=== PATIENT | female | born 1970 | race Caucasian/White ===

== ENCOUNTER 2019-02-10 09:55 | Emergency (ER) | payer BC ==
--- NOTE | 2019-02-10 12:13 | UC ---
Knee Pain HPI - HPI Summary HPI Summary: 48 yo female injured left knee a couple of weeks ago [place] like a strain was able to do ADLs and even exercise but still had pain last pm rolled over in bed and felt knee pop now unable to bear wt unable to straighten leg - History of Current Complaint Chief Complaint: UCLowerExtremity Stated Complaint: LT KNEE PAIN Time Seen by Provider: 02/10/19 11:42 Hx Obtained From: Patient Hx Last Menstrual Period: 12/16/18 Onset/Duration: Sudden Onset, Worse Since - last pm Severity Initially: Mild Severity Currently: Moderate Pain Intensity: 8 Pain Scale Used: 0-10 Numeric Character: Sharp Aggravating Factor(s): Movement, Weight Bearing Alleviating Factor(s): Rest Associated Signs And Symptoms: Positive: Swelling Able to Bear Weight: No - Allergies/Home Medications Allergies/Adverse Reactions: Allergies Allergy/AdvReac Type Severity Reaction Status Date / Time No Known Allergies Allergy Verified 02/10/19 10:17 Home Medications: Home Medications Calcium Carbonate [Calcium] 1 tab PO DAILY 02/10/19 [History Confirmed 02/10/19] Cetirizine HCl [Zyrtec] 1 tab PO DAILY 02/10/19 [History Confirmed 02/10/19] Esomeprazole Magnesium [Nexium] 1 tab PO DAILY 02/10/19 [History Confirmed 02/10] Ibuprofen [Advil] 400 mg PO ONCE PRN 02/10/19 [History Confirmed 02/10/19] Multivitamin [Multivitamins] 1 tab PO DAILY 02/10/19 [History Confirmed 02/10/19 ] PMH/Surg Hx/FS Hx/Imm Hx Previously Healthy: Yes - Surgical History Surgical History: Yes Surgery Procedure, Year, and Place: torn ACL with meniscus surgery - Social History Alcohol Use: None Substance Use Type: None Smoking Status (MU): Never Smoked Tobacco Review of Systems All Other Systems Reviewed And Are Negative: Yes Constitutional: Positive: Negative Skin: Positive: Negative Eyes: Positive: Negative ENT: Positive: Negative Respiratory: Positive: Negative Cardiovascular: Positive: Negative Gastrointestinal: Positive: Negative Genitourinary: Positive: Negative Motor: Positive: Decreased ROM - left kniee Musculoskeletal: Positive: Arthralgia - left knee Neurological: Positive: Negative Psychological: Positive: Negative Physical Exam Vital Signs: Initial Vital Signs Temp 98.7 F 02/10/19 10:11 Pulse 80 02/10/19 10:11 Resp 18 02/10/19 10:11 BP 121/72 02/10/19 10:11 Pulse Ox 99 02/10/19 10:11 Diagnostics - Radiology No standard instances Radiology Interpretation Completed By: Radiologist Summary of Radiographic Findings: no fx or effusion Knee Pain Course/Dx - Differential Dx/Diagnosis Provider Diagnosis: Tear of meniscus of left knee Discharge - Sign-Out/Discharge Documenting (check all that apply): Patient Departure All imaging exams completed and their final reports reviewed: Yes - Discharge Plan Condition: Stable Disposition: HOME Patient Education Materials: Meniscus Tear (ED) Referrals: Nader Donahue MD [Medical Doctor] - As Soon As Possible Additional Instructions: I suspect a torn meniscus I suggest advil or aleve ice twice daily - Billing Disposition and Condition Condition: STABLE Disposition: Home
[2019-02-10 13:31] VITALS: BP 131/71
== END 2019-02-10 13:31 | disposition home or self-care (01) ==
LOC: UCEAST 09:55
DX: S83.207A Unspecified tear of unspecified meniscus, current injury, left knee, initial encounter (principal); X58.XXXA Exposure to other specified factors, initial encounter; Y92.9 Unspecified place or not applicable
CPT/HCPCS: 99212; G0463

== ENCOUNTER 2019-05-30 10:32 | Day surgery (SDC) | payer BC ==
[~2019-05-30 10:32] MED LIST: Buffered Lidocaine 1% SYRIN* 1 ML/SYRINGE INTRADERM ONE; Lactated Ringers 1000 ML Bag* 1,000 ML IV SCH
[2019-05-30] MEDS ORDERED: Lidocaine 1% INJ* 10 MG/ML 30 ML SDV ONE (11:41)
[2019-05-30] MEDS ORDERED: Acetaminophen TAB* 325 MG PO PRN (12:07)
[2019-05-30] MEDS ORDERED: Naloxone* 0.4 MG/ML 1 ML VIAL IV PRN (12:07)
[2019-05-30] MEDS ORDERED: DiMENhydriNATE IV* 50 MG/ML VIAL IV PUSH PRN (12:07)
[2019-05-30] MEDS ORDERED: Ondansetron INJ* 2 MG/ML VIAL IV PRN (12:07)
[2019-05-30] MEDS ORDERED: fentaNYL* 50 MCG/ML 2 ML VIAL (100 MCG VIAL) IV PRN (12:07)
[2019-05-30] MEDS ORDERED: fentaNYL* 50 MCG/ML 2 ML VIAL (100 MCG VIAL) ONE (12:23)
[2019-05-30] MEDS ORDERED: Midazolam* 1 MG/ML 2 ML VIAL (2 MG) ONE (12:23)
[2019-05-30] MEDS ORDERED: Ketorolac INJ* 30 MG/ML 1 ML VIAL ONE (12:39)
[2019-05-30 15:38] VITALS: BP 121/79
--- NOTE | 2019-05-30 18:40 | OP ---
DATE OF OPERATION: 05/30/19 [facility] DATE OF : 68 SURGEON: Katerina Wagner MD REGIONAL COORDINATOR: MALATHI Miranda ANESTHESIA: Local MAC. PRE-OP DIAGNOSIS: Right carpal tunnel syndrome. POST-OP DIAGNOSIS: Right carpal tunnel syndrome. OPERATIVE PROCEDURE: Right carpal tunnel release. ESTIMATED BLOOD LOSS: Zero. TOURNIQUET TIME: Approximately 10 minutes. INDICATIONS FOR PROCEDURE: Lorena is a 49-year-old female, who has numbness and tingling in the median nerve distribution of her right hand. She presents for right carpal tunnel release. DESCRIPTION OF PROCEDURE: The patient was brought to the operating room, was given a sedation anesthetic and a local infiltration of 10 cc of 1% plain lidocaine in the palm of her right hand. The skin of her right hand and forearm was prepped and draped in the usual sterile fashion. The hand and forearm were exsanguinated and the tourniquet elevated to 250 mmHg. A longitudinal incision was made in the palm in line with the ring finger. We dissected through the subcutaneous tissue down to the transverse carpal ligament. The ligament was divided sharply with a knife and then more proximally with the scissors. The nerve was dissected free from the surrounding tissue and there was an area of moderate compression at the mid portion of the ligament. The wound was irrigated and the skin edges reapproximated with 4- 0 nylon suture. The wound was dressed with Xeroform, 4x4 , Webril, and an [place] wrap. The patient tolerated the procedure well and was brought to the recovery room in good condition. [id number]/[facility] #: [id number] KENNETH
== END 2019-05-30 13:40 | disposition home or self-care (01) ==
LOC: OREAST 10:32
PROVIDERS: ATTEND Orthopaedic Surgery
DX: G56.01 Carpal tunnel syndrome, right upper limb (principal); K21.9 Gastro-esophageal reflux disease without esophagitis
CPT/HCPCS: 81025; J1885; J2250; J3010

== ENCOUNTER 2019-08-14 09:45 | Day surgery (SDC) | payer BC ==
[~2019-08-14 09:45] MED LIST changes: +Dexamethasone IV* 4 MG/ML 1 ML (4 MG) IV SLOW PU ONE; +Dexamethasone IV* 4 MG/ML 1 ML (4 MG) ONE; +Famotidine IV* 10 MG/ML 2 ML (20 mg) IV ONE; +Famotidine IV* 10 MG/ML 2 ML (20 mg) ONE
[2019-08-14] MEDS ORDERED: ceFAZolin 2 GM PREMIX in ORs 2 GM/50 ML BAG ONE (09:54)
[2019-08-14] MEDS ORDERED: Ketorolac INJ* 30 MG/ML 1 ML VIAL ONE (10:41)
[2019-08-14] MEDS ORDERED: Propofol* 10 MG/ML 20 ML BTL ONE (10:41)
[2019-08-14] MEDS ORDERED: fentaNYL* 50 MCG/ML 2 ML VIAL (100 MCG VIAL) ONE (10:41)
[2019-08-14] MEDS ORDERED: Ondansetron INJ* 2 MG/ML VIAL ONE (10:41)
[2019-08-14] MEDS ORDERED: Chloroprocaine 2%* 20 ML VIAL ONE (10:46)
[2019-08-14] MEDS ORDERED: Lidocaine 1% w EPI 1:200,000* SDV 30 ML VIAL ONE (11:00)
[2019-08-14] MEDS ORDERED: fentaNYL* 50 MCG/ML 2 ML VIAL (100 MCG VIAL) IV PRN (11:11)
[2019-08-14] MEDS ORDERED: Naloxone* 0.4 MG/ML 1 ML VIAL IV PRN (11:11)
[2019-08-14] MEDS ORDERED: DiMENhydriNATE IV* 50 MG/ML VIAL IV PUSH PRN (11:11)
[2019-08-14] MEDS ORDERED: oxyCODONE/Acetamin 5/325 MG* TAB PO PRN (11:11)
[2019-08-14] MEDS ORDERED: Ondansetron INJ* 2 MG/ML VIAL IV PRN (11:11)
[2019-08-14 13:32] VITALS: BP 119/68
--- NOTE | 2019-08-15 16:57 | OP ---
DATE OF OPERATION: 08/14/19 - [facility] DATE OF : 68 SURGEON: Avelino Bhandari MD BRANCH MANAGER: MALATHI Velazquez. An web assistant was needed for the entirety of the case due to the patient's size, to help with positioning, retraction, and was utilized throughout all portions of the case. ANESTHESIOLOGIST: Dr. Burciaga. ANESTHESIA: Spinal with local MAC. PRE-OP DIAGNOSIS: Left knee partial tear of the anterior cruciate ligament with medial meniscus tear. POST-OP DIAGNOSES: 1. Left knee partial tear of the anterior cruciate ligament with medial meniscus tear. 2. Lateral meniscal fraying. 3. Some mild arthrosis of the medial compartment. OPERATIVE PROCEDURE: Left knee arthroscopy with partial medial and partial lateral meniscectomy and chondroplasty. DISPOSITION: Stable. COMPLICATIONS: None. INDICATIONS: Lorena De Santiago is a 49-year-old female with persistent left knee pain. She has failed conservative management. She has a known partial tear of the ACL and a medial meniscus root tear. The risks and benefits of surgery were discussed at length and included, but are not limited to bleeding; infection; damage to nerves, vessels, surrounding structures; wound nonhealing; persistent pain; need for further surgery; scarring; stiffness; incomplete relief of symptoms; risks of anesthesia. DESCRIPTION OF PROCEDURE: The patient was greeted in the preoperative area by the attending surgeon. Correct extremity was marked and consent was confirmed. The patient was brought back to the operating suite where she was placed in the supine position on the operating table. She was sat up and then underwent spinal anesthesia, after which she was appropriately positioned on the operating table. The lateral post was positioned. An unsterile tourniquet was placed high on the proximal thigh. The left leg was then prepped and draped in the usual sterile fashion beginning with chlorhexidine soap, scrub, and alcohol wipe, and a final prep with ChloraPrep. After appropriate surgical pause indicating side, site, procedure, and administration of antibiotics, the knee was intra-articularly injected with 1% lidocaine with epi. The anterolateral portal was made sharply with an 11- blade. Scope was introduced into the joint and the joint was examined. There was abundant synovitis that was present anteriorly. The ACL was intact, but had evidence of partial tearing. The PCL was intact. The patellofemoral joint had grade 0 to 1 changes. There was abundant synovitis that was present particularly medially with a plica. This was debrided back using the shaver. There was evidence of a grade 2 lesion, grade 3 area about the medial aspect of the medial femoral condyle, which was about 5 mm x 5 mm and then along the weightbearing surface there was evidence of grade 2 changes with unstable flaps. The medial plateau also had some grade 1 and 2 changes. The medial meniscus had root tearing at the root, but it was grossly stable. The unstable flap was debrided using the shaver. The knee was then placed in a figure-of- four position. The lateral compartment was examined. There were grade 0 changes with no obvious arthritis that was present. There was some fraying of the lateral meniscus root as well as the body. This was debrided back using the shaver. The knee was then thoroughly lavaged removing any loose debris. The wounds were then copiously irrigated with sterile saline. Portals were closed with 3-0 nylon in interrupted fashion. The wound was superficially and intra-articularly injected with 0.2% ropivacaine. Sterile dressings were applied and a Cryo/Cuff. She was awoken from anesthesia and transferred to the PACU in stable condition. POSTOPERATIVE PLAN: She will be weightbearing as tolerated with crutches for 3 to 5 days. Discharged on pain medication. Range of motion as tolerated. I will see the patient back in 10 to 14 days. DVT prophylaxis was considered, but deferred due to no previous personal or family history. [id number]/[facility] #: [id number] KENNETH
== END 2019-08-14 13:20 | disposition home or self-care (01) ==
LOC: OREAST 09:45
PROVIDERS: ATTEND Orthopaedic Surgery
DX: S83.242A Other tear of medial meniscus, current injury, left knee, initial encounter (principal); S83.282A Other tear of lateral meniscus, current injury, left knee, initial encounter; S83.512A Sprain of anterior cruciate ligament of left knee, initial encounter; M17.11 Unilateral primary osteoarthritis, right knee; X58.XXXA Exposure to other specified factors, initial encounter; Y92.9 Unspecified place or not applicable; K21.9 Gastro-esophageal reflux disease without esophagitis; J30.89 Other allergic rhinitis
CPT/HCPCS: 81025; J0690; J1100; J1885; J2001; J2400; J2405; J2704; J3010

== ENCOUNTER 2023-05-28 11:10 | Inpatient (IN) ==
[~2023-05-28 11:10] MED LIST changes: +Buffered Lidocaine 1% SYRIN 1 ml INTRADERM ONE; -Buffered Lidocaine 1% SYRIN* 1 ML/SYRINGE INTRADERM ONE; -Dexamethasone IV* 4 MG/ML 1 ML (4 MG) IV SLOW PU ONE; -Dexamethasone IV* 4 MG/ML 1 ML (4 MG) ONE; -Famotidine IV* 10 MG/ML 2 ML (20 mg) IV ONE; -Famotidine IV* 10 MG/ML 2 ML (20 mg) ONE; -Lactated Ringers 1000 ML Bag* 1,000 ML IV SCH; +Lactated Ringers 1000 ml BAG 1,000 ML IV SCH; +Naloxone 0.4 mg VIAL 0.4 mg/ml 1 ml VIAL IV PRN; +Ondansetron 4 mg VIAL 2 MG/ML 2 ml VIAL IV PRN; +fentaNYL 100 mcg/2 ml 50 MCG/ML VIAL IV PRN
[2023-05-28] MEDS ORDERED: Tranexamic Acid 1 GM/100ML BAG 2,000 MG/200 ML BAG IV ONE (11:27)
[2023-05-28] MEDS ORDERED: ceFAZolin 2 GM PREMIX 2 GM/50 ML BAG ONE (11:27)
[2023-05-28 11:43] LABS: Rapid COVID-19 Molecular Undetected (Undetected)
[2023-05-28] MEDS ORDERED: ROPIVACAINE 5 MG/ML 30 ML BTL (0.5%) ONE ×2 (12:02→12:46)
[2023-05-28] MEDS ORDERED: Dexamethasone IV 4 MG/ML VIAL 1 ml VIAL ONE ×2 (12:02→12:48)
[2023-05-28] MEDS ORDERED: Midazolam 2 mg/2 ml VIAL 1 mg/ml 2 ml VIAL (2 mg) ONE ×2 (12:02→12:48)
[2023-05-28] MEDS ORDERED: Propofol 10 MG/ML 20 ML BTL ONE ×4 (12:48→16:39)
[2023-05-28] MEDS ORDERED: fentaNYL 100 mcg/2 ml 50 MCG/ML VIAL ONE (12:48)
[2023-05-28] MEDS ORDERED: Lidocaine 2% PF 5 ML VIAL ONE (12:48)
[2023-05-28] MEDS ORDERED: Ondansetron 4 mg VIAL 2 MG/ML 2 ml VIAL ONE (12:48)
[2023-05-28] MEDS ORDERED: Phenylephrine IV 10 MG/ML 1 ml VIAL ONE (14:26)
[2023-05-28] MEDS ORDERED: Acetaminophen IV 1 GM/100ML 1,000 MG/100 ML BAG IV ONE (15:00)
[2023-05-28] MEDS ORDERED: Lactulose 30 ml UDC PO PRN (15:38)
[2023-05-28] MEDS ORDERED: Morphine 2 MG/ML SYRINGE IV PRN (15:38)
[2023-05-28] MEDS ORDERED: Ondansetron 4 mg VIAL 2 MG/ML 2 ml VIAL IV PRN (15:38)
[2023-05-28] MEDS ORDERED: Magnesium Hydroxide LIQ 30 ML UDC PO PRN (15:38)
[2023-05-28] MEDS ORDERED: Ondansetron ODT 4 mg TAB 4 MG TAB PO PRN (15:38)
[2023-05-28] MEDS ORDERED: Phenylephrine 40 mcg/mL 10mL (400mcg) SYRINGE ONE (16:02)
[2023-05-28] MEDS: Lactated Ringers 1000 ml BAG 1,000 ML IV SCH (18:21)
[2023-05-28] MEDS: Magnesium Hydroxide LIQ 30 ML UDC PO SCH (20:38)
[2023-05-28] MEDS: ceFAZolin 1 GM ADVAN 1 GM in NS 0.9% 50 ML 50 ML IVPB SCH (21:33)
[2023-05-29] MEDS: ceFAZolin 1 GM ADVAN 1 GM in NS 0.9% 50 ML 50 ML IVPB SCH ×2 (05:06→13:37)
[2023-05-29] MEDS: Lactated Ringers 1000 ml BAG 1,000 ML IV SCH (05:09)
[2023-05-29 07:11] LABS: Hematocrit 31.9 % (35-45); Hemoglobin 11.2 g/dL (11.5-14.3); Platelet Count 360 10^3/uL (150-450)
[2023-05-29 07:29] LABS: Calcium 8.5 mg/dL (8.6-10.3); Creatinine, Serum 0.95 mg/dL (0.51-0.95); Potassium 3.7 mmol/L (3.5-5.0); eGFR CKD-EPI 71.2 (>60)
[2023-05-29] MEDS: Magnesium Hydroxide LIQ 30 ML UDC PO SCH (08:29)
[2023-05-29] MEDS ORDERED: Vitamin THERAPEUTIC TAB PO SCH (09:00)
[2023-05-29 13:56] VITALS: BP 122/77
== END 2023-05-29 14:25 | disposition home or self-care (01) | DRG 302 ==
LOC: AA 11:10 → SSU 18:16
PROVIDERS: ADMIT Orthopaedic Surgery Adult Reconstructive Orthopaedic Surgery; ATTEND Orthopaedic Surgery Adult Reconstructive Orthopaedic Surgery